=== PATIENT | female | born 1940 | race Asian ===

== ENCOUNTER 2023-05-10 12:52 | Inpatient (IN) | payer MEDICAID, MEDICARE ==
[~2023-05-10] VITALS: Ht 152.4 cm; Wt 54.4 kg
[2023-05-10 13:14] VITALS: BP 98/60; PULSE 99; RESP 20; TEMP 98; O2SAT 98
[2023-05-10 13:45] VITALS: O2SAT 98
[2023-05-10 14:01] LABS: BASOPHILS # (AUTO) 0.1 K/uL (0.00-0.22); BASOPHILS % (AUTO) 1.3 % (0.0-2.0); EOSINOPHILS # (AUTO) 0.7 K/uL (0-0.4); EOSINOPHILS % (AUTO) 7.3 % (0.0-4.0); LYMPHOCYTES # (AUTO) 0.6 K/uL (2.5-16.5); LYMPHOCYTES % (AUTO) 6.2 % (20.5-51.1); MEAN CORPUSCULAR HEMOGLOBIN 30 pg (27-31); MEAN CORPUSCULAR HGB CONC 31 g/dL (33-37); MONOCYTES # (AUTO) 0.8 K/uL (0.8-1.0); MONOCYTES % (AUTO) 8.7 % (1.7-9.3); NEUTROPHILS # (AUTO) 7.5 K/uL (1.8-7.7); NEUTROPHILS % (AUTO) 76.5 % (42.2-75.2); PLATELET COUNT (AUTO) 329 K/uL (140-450); RED BLOOD CELL COUNT(AUTO) 2.29 MIL/uL (4.20-5.40); RED CELL DISTRIBUTION WIDTH 19.9 % (11.6-13.7); WHITE BLOOD COUNT (AUTO) 9.7 K/uL (4.8-10.8)
[2023-05-10 14:17] LABS: ALANINE AMINOTRANSFERASE 28 U/L (12-78); ALBUMIN 1.8 g/dL (3.4-5.0); ALKALINE PHOSPHATASE 128 U/L (50-136); ANION GAP 10.6 (8-16); ASPARTATE AMINOTRANSFERASE 26 U/L (15-37); CALCIUM 8.6 mg/dL (8.5-10.1); CARBON DIOXIDE 31.4 mmol/L (21-32); CHLORIDE 99 mmol/L (98-107); CREATININE 2.6 mg/dL (0.6-1.3); GLUCOSE 120 mg/dL (74-106); SODIUM SERUM 137 mmol/L (136-145); TOTAL BILIRUBIN 0.3 mg/dL (0.0-1.0); TOTAL PROTEIN, SERUM 7.4 g/dL (6.4-8.2)
[2023-05-10 14:20] LABS: UREA NITROGEN, BLOOD 85 mg/dL (7-18)
[2023-05-10 14:21] LABS: HEMOGLOBIN 6.9 g/dL (12.0-16.0)
[2023-05-10 14:27] LABS: INR 0.96 (0.8-1.2); PARTIAL THROMBOPLASTIN TIME 31.4 secs (22-35.6); PROTHROMBIN TIME 10.1 secs (10.8-13.4)
[2023-05-10 14:29] LABS: MAGNESIUM 2.6 mg/dL (1.8-2.4); PHOSPHORUS 2.4 mg/dL (2.5-4.9)
[2023-05-10 17:54] VITALS: PULSE 106; RESP 22; O2SAT 94; O2SAT 95
[2023-05-10] MEDS ORDERED: XALOS OP (17:57)
[2023-05-10] MEDS ORDERED: INSU100S45 SUBQ (17:57)
[2023-05-10] MEDS ORDERED: LACT500C2 GT (17:57)
[2023-05-10] MEDS ORDERED: CHLO473S62 PO (17:57)
[2023-05-10] MEDS ORDERED: SEVE800T6 GT (17:57)
[2023-05-10] MEDS ORDERED: LANS30EC68 GT (17:57)
[2023-05-10] MEDS ORDERED: ALPR0.5T2 GT (17:57)
[2023-05-10] MEDS ORDERED: [UNRECOGNIZED DRUG - CODE] GT (17:57)
[2023-05-10] MEDS ORDERED: QUET25TA GT (17:57)
[2023-05-10] MEDS ORDERED: SYN.05 GT (17:57)
[2023-05-10] MEDS ORDERED: ESCI5TAB GT (17:57)
[2023-05-10] MEDS ORDERED: DOCU-2 GT (17:57)
[2023-05-10] MEDS ORDERED: METO25TA GT (17:57)
[2023-05-10 20:46] VITALS: BP 142/65; PULSE 106; PULSE 109; RESP 20; TEMP 97.5; O2SAT 94; O2SAT 96
[2023-05-11] VITALS (9 sets, daily range): BP systolic 138–157; BP diastolic 60–82; PULSE 87–111; RESP 16–20; TEMP 96.7–98.2; O2SAT 94–99
[2023-05-11 07:05] LABS: BASOPHILS # (AUTO) 0.1 K/uL (0.00-0.22); BASOPHILS % (AUTO) 1.3 % (0.0-2.0); EOSINOPHILS # (AUTO) 0.5 K/uL (0-0.4); EOSINOPHILS % (AUTO) 5.8 % (0.0-4.0); HEMATOCRIT 28.9 % (36-48); HEMOGLOBIN 9.3 g/dL (12.0-16.0); LYMPHOCYTES # (AUTO) 0.5 K/uL (2.5-16.5); LYMPHOCYTES % (AUTO) 5.5 % (20.5-51.1); MEAN CORPUSCULAR HEMOGLOBIN 31 pg (27-31); MEAN CORPUSCULAR HGB CONC 32 g/dL (33-37); MEAN CORPUSCULAR VOLUME 94.6 fL (80-94); MONOCYTES # (AUTO) 0.9 K/uL (0.8-1.0); MONOCYTES % (AUTO) 9.1 % (1.7-9.3); NEUTROPHILS # (AUTO) 7.4 K/uL (1.8-7.7); NEUTROPHILS % (AUTO) 78.3 % (42.2-75.2); PLATELET COUNT (AUTO) 316 K/uL (140-450); RED BLOOD CELL COUNT(AUTO) 3.05 MIL/uL (4.20-5.40); RED CELL DISTRIBUTION WIDTH 17.8 % (11.6-13.7); WHITE BLOOD COUNT (AUTO) 9.4 K/uL (4.8-10.8)
[2023-05-11 07:40] LABS: ALANINE AMINOTRANSFERASE 30 U/L (12-78); ALBUMIN 2.1 g/dL (3.4-5.0); ALKALINE PHOSPHATASE 134 U/L (50-136); ANION GAP 16.3 (8-16); ASPARTATE AMINOTRANSFERASE 23 U/L (15-37); CARBON DIOXIDE 27.9 mmol/L (21-32); CHLORIDE 100 mmol/L (98-107); CREATININE 3.1 mg/dL (0.6-1.3); GLUCOSE 157 mg/dL (74-106); MAGNESIUM 2.7 mg/dL (1.8-2.4); PHOSPHORUS 3.7 mg/dL (2.5-4.9); POTASSIUM 4.2 mmol/L (3.5-5.1); SODIUM SERUM 140 mmol/L (136-145); TOTAL BILIRUBIN 0.4 mg/dL (0.0-1.0); TOTAL PROTEIN, SERUM 8.2 g/dL (6.4-8.2)
[2023-05-11 07:42] LABS: UREA NITROGEN, BLOOD 97 mg/dL (7-18)
[2023-05-11] MEDS: ALPRAZolam 0.5 MG TAB GT SCH ×3 (13:35→23:48)
[2023-05-11] MEDS: SEVELAMER CARBONATE 800 MG TAB PO SCH ×2 (13:35→17:08)
[2023-05-11] MEDS: QUEtiapine FUMARATE 25 MG TAB GT SCH (21:07)
[2023-05-11] MEDS: LATANOPROST 0.005% OP 2.5 ML BTL OP SCH (21:24)
[2023-05-12] VITALS (9 sets, daily range): BP systolic 116–141; BP diastolic 64–77; PULSE 95–127; RESP 16–18; TEMP 97.6–98.7; O2SAT 93–100
[2023-05-12] MEDS: LEVOTHYROXINE 0.05 MG TAB GT SCH (05:55)
[2023-05-12] MEDS: ALPRAZolam 0.5 MG TAB GT SCH ×3 (05:55→17:52)
[2023-05-12 06:28] LABS: BASOPHILS # (AUTO) 0.1 K/uL (0.00-0.22); BASOPHILS % (AUTO) 0.5 % (0.0-2.0); EOSINOPHILS # (AUTO) 0.7 K/uL (0-0.4); EOSINOPHILS % (AUTO) 6.7 % (0.0-4.0); HEMATOCRIT 29.5 % (36-48); HEMOGLOBIN 9.5 g/dL (12.0-16.0); LYMPHOCYTES # (AUTO) 0.5 K/uL (2.5-16.5); LYMPHOCYTES % (AUTO) 5.2 % (20.5-51.1); MEAN CORPUSCULAR HEMOGLOBIN 30 pg (27-31); MEAN CORPUSCULAR HGB CONC 32 g/dL (33-37); MEAN CORPUSCULAR VOLUME 94.4 fL (80-94); MONOCYTES % (AUTO) 9.9 % (1.7-9.3); NEUTROPHILS # (AUTO) 7.7 K/uL (1.8-7.7); NEUTROPHILS % (AUTO) 77.7 % (42.2-75.2); PLATELET COUNT (AUTO) 317 K/uL (140-450); RED BLOOD CELL COUNT(AUTO) 3.13 MIL/uL (4.20-5.40); RED CELL DISTRIBUTION WIDTH 18.2 % (11.6-13.7); WHITE BLOOD COUNT (AUTO) 9.9 K/uL (4.8-10.8)
[2023-05-12 07:14] LABS: ALANINE AMINOTRANSFERASE 24 U/L (12-78); ALBUMIN 2.1 g/dL (3.4-5.0); ALKALINE PHOSPHATASE 147 U/L (50-136); ANION GAP 14.1 (8-16); ASPARTATE AMINOTRANSFERASE 18 U/L (15-37); CALCIUM 8.7 mg/dL (8.5-10.1); CARBON DIOXIDE 27.9 mmol/L (21-32); CHLORIDE 100 mmol/L (98-107); CREATININE 3.4 mg/dL (0.6-1.3); GLUCOSE 228 mg/dL (74-106); MAGNESIUM 2.9 mg/dL (1.8-2.4); SODIUM SERUM 138 mmol/L (136-145); TOTAL BILIRUBIN 0.3 mg/dL (0.0-1.0); TOTAL PROTEIN, SERUM 8.1 g/dL (6.4-8.2)
[2023-05-12 07:17] LABS: UREA NITROGEN, BLOOD 108 mg/dL (7-18)
[2023-05-12] MEDS: SEVELAMER CARBONATE 800 MG TAB PO SCH ×3 (08:22→16:44)
[2023-05-12] MEDS: LANSOPRAZOLE 30 MG CAPDR GT SCH (08:22)
[2023-05-12] MEDS: ESCITALOPRAM 20 MG TAB GT SCH (08:23)
[2023-05-12] MEDS: METOPROLOL 25 MG TAB GT SCH (08:24)
[2023-05-12] MEDS: QUEtiapine FUMARATE 25 MG TAB GT SCH ×2 (08:25→21:55)
[2023-05-12] MEDS: LATANOPROST 0.005% OP 2.5 ML BTL OP SCH (21:56)
[2023-05-13] VITALS (7 sets, daily range): BP systolic 117–150; BP diastolic 58–80; PULSE 77–112; RESP 16–18; TEMP 97.9–98.5; O2SAT 99–100
[2023-05-13] MEDS: ALPRAZolam 0.5 MG TAB GT SCH ×3 (00:15→13:04)
[2023-05-13] MEDS: LEVOTHYROXINE 0.05 MG TAB GT SCH (05:42)
[2023-05-13 06:55] LABS: BASOPHILS # (AUTO) 0.1 K/uL (0.00-0.22); BASOPHILS % (AUTO) 1.2 % (0.0-2.0); EOSINOPHILS # (AUTO) 0.7 K/uL (0-0.4); EOSINOPHILS % (AUTO) 9.2 % (0.0-4.0); HEMOGLOBIN 9.3 g/dL (12.0-16.0); LYMPHOCYTES # (AUTO) 0.7 K/uL (2.5-16.5); LYMPHOCYTES % (AUTO) 9.2 % (20.5-51.1); MEAN CORPUSCULAR HEMOGLOBIN 30 pg (27-31); MEAN CORPUSCULAR HGB CONC 32 g/dL (33-37); MEAN CORPUSCULAR VOLUME 93.5 fL (80-94); MONOCYTES # (AUTO) 0.7 K/uL (0.8-1.0); MONOCYTES % (AUTO) 9.6 % (1.7-9.3); NEUTROPHILS # (AUTO) 5.3 K/uL (1.8-7.7); NEUTROPHILS % (AUTO) 70.8 % (42.2-75.2); PLATELET COUNT (AUTO) 320 K/uL (140-450); RED CELL DISTRIBUTION WIDTH 17.4 % (11.6-13.7); WHITE BLOOD COUNT (AUTO) 7.5 K/uL (4.8-10.8)
[2023-05-13 07:15] LABS: MAGNESIUM 2.1 mg/dL (1.8-2.4); PHOSPHORUS 3.1 mg/dL (2.5-4.9)
[2023-05-13 07:21] LABS: ANION GAP 9.9 (8-16); CALCIUM 8.3 mg/dL (8.5-10.1); CARBON DIOXIDE 30.7 mmol/L (21-32); CHLORIDE 100 mmol/L (98-107); GLUCOSE 186 mg/dL (74-106); POTASSIUM 3.6 mmol/L (3.5-5.1); SODIUM SERUM 137 mmol/L (136-145); UREA NITROGEN, BLOOD 50 mg/dL (7-18)
[2023-05-13] MEDS: METOPROLOL 25 MG TAB GT SCH (09:31)
[2023-05-13] MEDS: LANSOPRAZOLE 30 MG CAPDR GT SCH (09:31)
[2023-05-13] MEDS: ESCITALOPRAM 20 MG TAB GT SCH (09:31)
[2023-05-13] MEDS: SEVELAMER CARBONATE 800 MG TAB PO SCH ×2 (09:31→13:04)
[2023-05-13] MEDS: QUEtiapine FUMARATE 25 MG TAB GT SCH (09:32)
[2023-05-14] MEDS ORDERED: EPOETIN ALFA 10,000 UNITS/ML VIAL IV SCH (09:00)
== END 2023-05-13 13:27 | DRG 425 ==
LOC: MED 12:52 → MTU 17:17
PROVIDERS: ADMIT Student in an Organized Health Care Education/Training Program; ATTEND Student in an Organized Health Care Education/Training Program
PROC: 30233N1 Transfusion of Nonautologous Red Blood Cells into Peripheral Vein, Percutaneous Approach (ICD-10-PCS; principal; 2023-05-10)
PROC: 5A1D70Z Performance of Urinary Filtration, Intermittent, Less than 6 Hours Per Day (ICD-10-PCS; 2023-05-11)
DX: E87.70 Fluid overload, unspecified (principal); I12.0 Hypertensive chronic kidney disease with stage 5 chronic kidney disease or end stage renal disease; J96.11 Chronic respiratory failure with hypoxia; E83.39 Other disorders of phosphorus metabolism; D63.8 Anemia in other chronic diseases classified elsewhere; E83.42 Hypomagnesemia; E11.22 Type 2 diabetes mellitus with diabetic chronic kidney disease; N18.6 End stage renal disease; Z68.23 Body mass index [BMI] 23.0-23.9, adult; Z99.2 Dependence on renal dialysis; F03.90 Unspecified dementia, unspecified severity, without behavioral disturbance, psychotic disturbance, mood disturbance, and anxiety; I50.9 Heart failure, unspecified; E11.65 Type 2 diabetes mellitus with hyperglycemia; I25.10 Atherosclerotic heart disease of native coronary artery without angina pectoris; F32.A Depression, unspecified
CPT/HCPCS: 36415; 36430; 71045; 80048; 80053; 83735; 83880; 84100; 85025; 85610; 85730; 86886; 86900; 86901; 86920; 87040; 87070; 87081; 87205; 97112; 97163-GP; 97530; 99285; J0885; J1644; P9016; Q0092

== ENCOUNTER 2023-06-20 20:01 | Inpatient (IN) | payer MEDICAID, MEDICARE ==
[~2023-06-20] VITALS: Ht 157.5 cm; Wt 49.9 kg
[~2023-06-20 20:01] MED LIST: ALPR0.5T2 GT; CHLO473S62 PO; DOCU-2 GT; ESCI5TAB GT; INSU100S45 SUBQ; LACT500C2 GT; LANS30EC68 GT; METO25TA GT; QUET25TA GT; SEVE800T6 GT; SYN.05 GT; XALOS OP; [UNRECOGNIZED DRUG - CODE] GT
[2023-06-20 20:03] VITALS: BP 131/67; PULSE 96; RESP 17; O2SAT 3
[2023-06-20 20:35] VITALS: BP 144/64; PULSE 92; O2SAT 100
[2023-06-20 20:52] LABS: BASOPHILS % (AUTO) 0.2 % (0.0-2.0); EOSINOPHILS # (AUTO) 0.7 K/uL (0-0.4); EOSINOPHILS % (AUTO) 3.9 % (0.0-4.0); LYMPHOCYTES # (AUTO) 0.6 K/uL (2.5-16.5); LYMPHOCYTES % (AUTO) 3.1 % (20.5-51.1); MEAN CORPUSCULAR HEMOGLOBIN 30 pg (27-31); MEAN CORPUSCULAR HGB CONC 31 g/dL (33-37); MEAN CORPUSCULAR VOLUME 97.7 fL (80-94); MONOCYTES # (AUTO) 0.9 K/uL (0.8-1.0); MONOCYTES % (AUTO) 4.6 % (1.7-9.3); NEUTROPHILS # (AUTO) 16.7 K/uL (1.8-7.7); NEUTROPHILS % (AUTO) 88.2 % (42.2-75.2); PLATELET COUNT (AUTO) 232 K/uL (140-450); RED BLOOD CELL COUNT(AUTO) 2.15 MIL/uL (4.20-5.40); RED CELL DISTRIBUTION WIDTH 23.3 % (11.6-13.7)
[2023-06-20 20:58] LABS: HEMOGLOBIN 6.5 g/dL (12.0-16.0)
[2023-06-20 21:09] LABS: INR 1.03 (0.8-1.2); PROTHROMBIN TIME 10.8 secs (10.8-13.4)
[2023-06-20 21:16] LABS: CALCIUM 10.7 mg/dL (8.5-10.1); CARBON DIOXIDE 33.2 mmol/L (21-32); CHLORIDE 96 mmol/L (98-107); CREATININE 1.6 mg/dL (0.6-1.3); GLUCOSE 95 mg/dL (74-106); POTASSIUM 3.2 mmol/L (3.5-5.1); SODIUM SERUM 131 mmol/L (136-145); UREA NITROGEN, BLOOD 39 mg/dL (7-18)
[2023-06-20 21:24] LABS: ANISOCYTOSIS 2+; HYPOCHROMASIA 2+
[2023-06-20 21:25] VITALS: O2SAT 98
[2023-06-20 21:25] LABS: POIKILOCYTOSIS 1+; STOMATOCYTES 1+
[2023-06-20] MEDS ORDERED: ONDANSETRON 4 MG/2 ML VIAL ONE (21:43)
[2023-06-20] MEDS: ONDANSETRON 4 MG/2 ML VIAL IVP ONE (21:46)
[2023-06-20] MEDS ORDERED: PIPERACILLIN/TAZOBACTAM 3.375 GM VIAL IV ONE (22:15)
[2023-06-20] MEDS: PIPERACILLIN/TAZOBACTAM 3.375 GM in DEXTROSE 5% 50 ML IV ONE (22:23)
[2023-06-20] MEDS ORDERED: ESCI5TAB PO (22:41)
[2023-06-20] MEDS ORDERED: MIRABULK PO (22:41)
[2023-06-20] MEDS ORDERED: CHOL500040 PO (22:41)
[2023-06-20] MEDS ORDERED: ACET-2619 PO (22:41)
[2023-06-20] MEDS ORDERED: QUET25TA GT (22:41)
[2023-06-20] MEDS ORDERED: ONDA-188 GT (22:41)
[2023-06-20] MEDS ORDERED: DIPH25TA53 GT (22:41)
[2023-06-20] MEDS ORDERED: SYN.05 PO (22:41)
[2023-06-20] MEDS ORDERED: XALOS OP (22:41)
[2023-06-20] MEDS ORDERED: ALPR0.5T2 GT (22:41)
[2023-06-20] MEDS ORDERED: LACT1TAB34 GT (22:41)
[2023-06-20 22:53] VITALS: BP 96/38; PULSE 94; O2SAT 100
[2023-06-20] MEDS ORDERED: POTASSIUM CHLORIDE 20% 40 MEQ/15 ML UDC ONE (23:36)
[2023-06-20] MEDS: NACL 0.9% 500 ML IV ONE (23:48)
[2023-06-20] MEDS: POTASSIUM CHLORIDE 20% 40 MEQ/15 ML UDC GT ONE (23:52)
[2023-06-21] VITALS (16 sets, daily range): BP systolic 118–142; BP diastolic 49–60; PULSE 83–95; RESP 12–18; TEMP 97.2–98; O2SAT 97–100
[2023-06-21] MEDS ORDERED: MAG SULF 2000 MG/WATER PREMIX 50 ML IV PRN (07:50)
[2023-06-21] MEDS ORDERED: ACETAMINOPHEN 325 MG TAB PO PRN (07:50)
[2023-06-21] MEDS ORDERED: POTASSIUM CHLORIDE 10 MEQ TABER PO PRN (07:50)
[2023-06-21] MEDS ORDERED: ONDANSETRON 4 MG/2 ML VIAL IVP PRN (07:50)
[2023-06-21] MEDS ORDERED: DOCUSATE SODIUM 100 MG GELCAP PO PRN (07:50)
[2023-06-21] MEDS ORDERED: VANCOMYCIN PER PHARMACY MC PRN (08:00)
[2023-06-21 08:31] LABS: BASOPHILS # (AUTO) 0.1 K/uL (0.00-0.22); BASOPHILS % (AUTO) 0.7 % (0.0-2.0); EOSINOPHILS # (AUTO) 0.5 K/uL (0-0.4); EOSINOPHILS % (AUTO) 2.9 % (0.0-4.0); LYMPHOCYTES # (AUTO) 0.4 K/uL (2.5-16.5); LYMPHOCYTES % (AUTO) 2.5 % (20.5-51.1); MEAN CORPUSCULAR HEMOGLOBIN 30 pg (27-31); MEAN CORPUSCULAR HGB CONC 31 g/dL (33-37); MEAN CORPUSCULAR VOLUME 97.3 fL (80-94); MONOCYTES # (AUTO) 0.7 K/uL (0.8-1.0); MONOCYTES % (AUTO) 4.6 % (1.7-9.3); NEUTROPHILS # (AUTO) 14.3 K/uL (1.8-7.7); NEUTROPHILS % (AUTO) 89.3 % (42.2-75.2); PLATELET COUNT (AUTO) 183 K/uL (140-450); RED BLOOD CELL COUNT(AUTO) 1.87 MIL/uL (4.20-5.40); RED CELL DISTRIBUTION WIDTH 23.5 % (11.6-13.7)
[2023-06-21 08:42] LABS: HEMATOCRIT 18.2 % (36-48); HEMOGLOBIN 5.7 g/dL (12.0-16.0)
[2023-06-21 08:54] LABS: ALANINE AMINOTRANSFERASE 35 U/L (12-78); ALBUMIN 1.4 g/dL (3.4-5.0); ALKALINE PHOSPHATASE 138 U/L (50-136); ASPARTATE AMINOTRANSFERASE 52 U/L (15-37); CALCIUM 10.2 mg/dL (8.5-10.1); CARBON DIOXIDE 31.3 mmol/L (21-32); CHLORIDE 96 mmol/L (98-107); CREATININE 1.8 mg/dL (0.6-1.3); GLUCOSE 85 mg/dL (74-106); POTASSIUM 4.3 mmol/L (3.5-5.1); SODIUM SERUM 132 mmol/L (136-145); TOTAL BILIRUBIN 0.4 mg/dL (0.0-1.0); TOTAL PROTEIN, SERUM 7.6 g/dL (6.4-8.2); UREA NITROGEN, BLOOD 44 mg/dL (7-18)
[2023-06-21] MEDS: VANCOMYCIN 1,000 MG in DEXTROSE 5% 250 ML IV SCH (11:15)
[2023-06-21] MEDS: PANTOPRAZOLE 40 MG INJ VIAL IVP SCH (11:24)
[2023-06-21] MEDS: PIPERACILLIN/TAZOBACTAM 2.25 GM in DEXTROSE 5% 50 ML IV SCH (16:54)
[2023-06-22] VITALS (14 sets, daily range): BP systolic 128–162; BP diastolic 50–79; PULSE 79–101; RESP 18–26; TEMP 96.9–99; O2SAT 97–100
[2023-06-22 06:50] LABS: BASOPHILS % (AUTO) 0.2 % (0.0-2.0); EOSINOPHILS # (AUTO) 0.4 K/uL (0-0.4); EOSINOPHILS % (AUTO) 3.1 % (0.0-4.0); HEMATOCRIT 23.8 % (36-48); HEMOGLOBIN 7.7 g/dL (12.0-16.0); LYMPHOCYTES # (AUTO) 0.5 K/uL (2.5-16.5); LYMPHOCYTES % (AUTO) 3.9 % (20.5-51.1); MEAN CORPUSCULAR HEMOGLOBIN 30 pg (27-31); MEAN CORPUSCULAR HGB CONC 32 g/dL (33-37); MEAN CORPUSCULAR VOLUME 93.6 fL (80-94); MONOCYTES # (AUTO) 0.9 K/uL (0.8-1.0); MONOCYTES % (AUTO) 6.2 % (1.7-9.3); NEUTROPHILS # (AUTO) 12.2 K/uL (1.8-7.7); NEUTROPHILS % (AUTO) 86.6 % (42.2-75.2); PLATELET COUNT (AUTO) 212 K/uL (140-450); RED BLOOD CELL COUNT(AUTO) 2.54 MIL/uL (4.20-5.40); RED CELL DISTRIBUTION WIDTH 22.1 % (11.6-13.7); WHITE BLOOD COUNT (AUTO) 14.1 K/uL (4.8-10.8)
[2023-06-22 06:57] LABS: ALANINE AMINOTRANSFERASE 41 U/L (12-78); ALBUMIN 1.5 g/dL (3.4-5.0); ALKALINE PHOSPHATASE 149 U/L (50-136); ANION GAP 14.5 (8-16); ASPARTATE AMINOTRANSFERASE 69 U/L (15-37); CALCIUM 9.3 mg/dL (8.5-10.1); CARBON DIOXIDE 24.7 mmol/L (21-32); CHLORIDE 102 mmol/L (98-107); CREATININE 1.4 mg/dL (0.6-1.3); GLUCOSE 80 mg/dL (74-106); MAGNESIUM 2.3 mg/dL (1.8-2.4); PHOSPHORUS 2.3 mg/dL (2.5-4.9); POTASSIUM 4.2 mmol/L (3.5-5.1); SODIUM SERUM 137 mmol/L (136-145); TOTAL BILIRUBIN 0.6 mg/dL (0.0-1.0); UREA NITROGEN, BLOOD 25 mg/dL (7-18)
[2023-06-22] MEDS: SODIUM FERRIC GLUCONATE 125 MG in NACL 0.9% 100 ML IV SCH (12:28)
[2023-06-22] MEDS: ZOLPIDEM 10 MG TAB PO PRN (20:45)
[2023-06-23] VITALS (16 sets, daily range): BP systolic 117–179; BP diastolic 50–101; PULSE 80–106; RESP 18–25; TEMP 97.4–98.7; O2SAT 92–100
[2023-06-23] MEDS ORDERED: Z-GUARD PASTE TP PRN (06:45)
[2023-06-23 07:12] LABS: BASOPHILS # (AUTO) 0.1 K/uL (0.00-0.22); BASOPHILS % (AUTO) 1.2 % (0.0-2.0); EOSINOPHILS # (AUTO) 0.9 K/uL (0-0.4); EOSINOPHILS % (AUTO) 7.4 % (0.0-4.0); HEMATOCRIT 24.6 % (36-48); HEMOGLOBIN 8.1 g/dL (12.0-16.0); LYMPHOCYTES # (AUTO) 0.6 K/uL (2.5-16.5); LYMPHOCYTES % (AUTO) 5.2 % (20.5-51.1); MEAN CORPUSCULAR HEMOGLOBIN 30 pg (27-31); MEAN CORPUSCULAR HGB CONC 33 g/dL (33-37); MEAN CORPUSCULAR VOLUME 92.9 fL (80-94); MONOCYTES # (AUTO) 0.5 K/uL (0.8-1.0); MONOCYTES % (AUTO) 4.5 % (1.7-9.3); NEUTROPHILS # (AUTO) 9.5 K/uL (1.8-7.7); NEUTROPHILS % (AUTO) 81.7 % (42.2-75.2); PLATELET COUNT (AUTO) 209 K/uL (140-450); RED BLOOD CELL COUNT(AUTO) 2.65 MIL/uL (4.20-5.40); RED CELL DISTRIBUTION WIDTH 21.6 % (11.6-13.7); WHITE BLOOD COUNT (AUTO) 11.6 K/uL (4.8-10.8)
[2023-06-23 07:22] LABS: ANION GAP 14.4 (8-16); CALCIUM 9.1 mg/dL (8.5-10.1); CARBON DIOXIDE 25.9 mmol/L (21-32); CHLORIDE 100 mmol/L (98-107); CREATININE 1.3 mg/dL (0.6-1.3); GLUCOSE 120 mg/dL (74-106); POTASSIUM 3.3 mmol/L (3.5-5.1); SODIUM SERUM 137 mmol/L (136-145); UREA NITROGEN, BLOOD 17 mg/dL (7-18)
[2023-06-23] MEDS: POTASSIUM CHLORIDE 20% 40 MEQ/15 ML UDC PO PRN (08:59)
[2023-06-23] MEDS: hydrALAZINE 20 MG/ML VIAL IVP PRN (09:00)
[2023-06-23] MEDS: VANCOMYCIN 500 MG in DEXTROSE 5% 100 ML IV SCH (09:39)
[2023-06-23] MEDS: Z-GUARD PASTE TP SCH (13:01)
[2023-06-24] VITALS (14 sets, daily range): BP systolic 127–162; BP diastolic 51–85; PULSE 89–109; RESP 17–27; TEMP 97–99.7; O2SAT 97–100
[2023-06-24] MEDS: MORPHINE SULFATE 2 MG/ML SYR IVP PRN (01:07)
[2023-06-24 07:20] LABS: BASOPHILS # (AUTO) 0.1 K/uL (0.00-0.22); EOSINOPHILS # (AUTO) 1.1 K/uL (0-0.4); EOSINOPHILS % (AUTO) 10.4 % (0.0-4.0); HEMATOCRIT 23.9 % (36-48); HEMOGLOBIN 7.9 g/dL (12.0-16.0); LYMPHOCYTES # (AUTO) 0.7 K/uL (2.5-16.5); MEAN CORPUSCULAR HEMOGLOBIN 31 pg (27-31); MEAN CORPUSCULAR HGB CONC 33 g/dL (33-37); MONOCYTES # (AUTO) 0.7 K/uL (0.8-1.0); MONOCYTES % (AUTO) 6.3 % (1.7-9.3); NEUTROPHILS # (AUTO) 8.3 K/uL (1.8-7.7); NEUTROPHILS % (AUTO) 76.3 % (42.2-75.2); PLATELET COUNT (AUTO) 175 K/uL (140-450); RED BLOOD CELL COUNT(AUTO) 2.57 MIL/uL (4.20-5.40); RED CELL DISTRIBUTION WIDTH 21.8 % (11.6-13.7); WHITE BLOOD COUNT (AUTO) 10.9 K/uL (4.8-10.8)
[2023-06-24 07:45] LABS: ANION GAP 12.5 (8-16); CALCIUM 9.9 mg/dL (8.5-10.1); CARBON DIOXIDE 27.8 mmol/L (21-32); CHLORIDE 99 mmol/L (98-107); CREATININE 2.1 mg/dL (0.6-1.3); GLUCOSE 207 mg/dL (74-106); POTASSIUM 4.3 mmol/L (3.5-5.1); SODIUM SERUM 135 mmol/L (136-145); UREA NITROGEN, BLOOD 32 mg/dL (7-18)
[2023-06-24] MEDS: EPOETIN ALFA-EPBX 10,000 UNITS/ML VIAL IV SCH (08:31)
[2023-06-24] MEDS: VANCOMYCIN HCL 750 MG in DEXTROSE 5% 250 ML IV SCH (16:42)
[2023-06-24] MEDS ORDERED: PIPE50SO5 IV (16:45)
[2023-06-25 06:07] LABS: FOLIC ACID 10.5 ng/mL (>3.0)
== END 2023-06-24 19:31 | DRG 206 ==
LOC: MED 20:01 → MMU 22:01 → MTU 22:10
PROVIDERS: ADMIT Family Medicine; ATTEND Family Medicine
PROC: 5A1945Z Respiratory Ventilation, 24-96 Consecutive Hours (ICD-10-PCS; principal; 2023-06-20)
PROC: 30233N1 Transfusion of Nonautologous Red Blood Cells into Peripheral Vein, Percutaneous Approach (ICD-10-PCS; 2023-06-21)
PROC: 5A1D70Z Performance of Urinary Filtration, Intermittent, Less than 6 Hours Per Day (ICD-10-PCS; 2023-06-21)
PROC: 5A1D70Z Performance of Urinary Filtration, Intermittent, Less than 6 Hours Per Day (ICD-10-PCS; 2023-06-22)
PROC: 5A1D70Z Performance of Urinary Filtration, Intermittent, Less than 6 Hours Per Day (ICD-10-PCS; 2023-06-22)
DX: T82.858A Stenosis of other vascular prosthetic devices, implants and grafts, initial encounter (principal); J95.851 Ventilator associated pneumonia; E43 Unspecified severe protein-calorie malnutrition; D68.9 Coagulation defect, unspecified; J96.10 Chronic respiratory failure, unspecified whether with hypoxia or hypercapnia; E87.1 Hypo-osmolality and hyponatremia; N18.6 End stage renal disease; D50.9 Iron deficiency anemia, unspecified; E87.6 Hypokalemia; Z93.0 Tracheostomy status; Z99.2 Dependence on renal dialysis; L03.113 Cellulitis of right upper limb; Y84.8 Other medical procedures as the cause of abnormal reaction of the patient, or of later complication, without mention of misadventure at the time of the procedure; Y92.89 Other specified places as the place of occurrence of the external cause; Z68.20 Body mass index [BMI] 20.0-20.9, adult; Z93.1 Gastrostomy status; R65.10 Systemic inflammatory response syndrome (SIRS) of non-infectious origin without acute organ dysfunction; I25.10 Atherosclerotic heart disease of native coronary artery without angina pectoris; L89.152 Pressure ulcer of sacral region, stage 2
CPT/HCPCS: 36415; 71045; 80048; 80053; 80202; 82272; 82607; 82728; 82746; 82948; 83540; 83735; 84100; 85025; 85610; 86870; 86886; 86900; 86901; 86920; 87040; 87081; 92526; 93971; 94002; 94003; 96361; 96374; 99285; C9113; J0360; J0696; J1644; J2270; J2405; J2543; J2916; J3370; J7060; P9016; Q5106